=== PATIENT | male | born 1960 | race Caucasian/White ===

== ENCOUNTER 2024-05-15 15:46 | Emergency (ER) | payer OTHER ==
[~2024-05-15] VITALS: Ht 175.3 cm; Wt 59.0 kg
[~2024-05-15 15:46] MED LIST: MULTI-VITAMIN1 EACH PO
[2024-05-15 15:55] VITALS: TEMP 98.3
[2024-05-15 16:40] LABS: BASOPHILS % 0.2 % (0.0-1.0); EOSINOPHILS # (AUTO) 0.2 (0.0-0.4); HEMATOCRIT 36.4 % (38.2-49.6); HEMOGLOBIN 12.2 g/dL (14.0-18.0); LYMPHOCYTES % 12.2 % (18.0-39.1); MEAN CORPUSCULAR HGB CONC 33.5 g/dL (31-35); MEAN CORPUSCULAR VOLUME 89.7 fL (81-99); MONOCYTES % 12.1 % (4.4-11.3); NEUTROPHILS # (AUTO) 6.2 (2.1-6.9); NEUTROPHILS % 73.1 % (38.7-80.0); PLATELET COUNT 305 x10e3/uL (140-360); RED BLOOD COUNT 4.06 x10e6/uL (4.3-5.7); RED CELL DISTRIBUTION WIDTH 13.6 % (11.7-14.4); WHITE BLOOD COUNT 8.53 x10e3/uL (4.8-10.8)
[2024-05-15 16:55] LABS: INR 0.95; PROTHROMBIN TIME 13.3 seconds (11.9-14.5)
[2024-05-15 16:56] LABS: PARTIAL THROMBOPLASTIN TIME 36.8 seconds (23.8-35.5)
[2024-05-15 17:04] LABS: ALBUMIN 3.5 g/dL (3.5-5.0); ALBUMIN/GLOBULIN RATIO 1.1 (0.8-2.0); ANION GAP 13.3 mmol/L (8-16); BILIRUBIN,TOTAL 0.2 mg/dL (0.2-1.2); CALCIUM 9.2 mg/dL (8.4-10.2); CREATININE, SERUM 0.73 mg/dL (0.72-1.25); POTASSIUM 4.3 mmol/L (3.5-5.1); TOTAL PROTEIN 6.6 g/dL (6.5-8.1)
[2024-05-15] MEDS: KETOROLAC TROMETHAMINE 30 MG/ML VIAL IV STA (17:05)
[2024-05-15] MEDS: SODIUM CHLORIDE 0.9% 1000ML 1,000 ML IV STA (17:06)
[2024-05-15] MEDS ORDERED: IOPAMIDOL 370 MG/ML 100 ML INFUS..BTL INJ ONE (17:31)
[2024-05-15 18:29] LABS: CORONAVIRUS COVID-19 AG NEGATIVE (NEGATIVE); INFLUENZA A AG NEGATIVE (NEGATIVE); INFLUENZA B AG NEGATIVE (NEGATIVE); STREPTOCOCCUS GRP A ANTIGEN NEGATIVE (NEGATIVE)
[2024-05-15 20:00] VITALS: PULSE 68; RESP 14
[2024-05-15 20:50] VITALS: BP 126/67; O2SAT 97
== END 2024-05-15 20:44 | disposition home or self-care (01) ==
LOC: ER 16:28
DX: R13.10 Dysphagia, unspecified (principal); C14.0 Malignant neoplasm of pharynx, unspecified; Z11.52 Encounter for screening for COVID-19
CPT/HCPCS: 36415; 70491; 80053; 83518; 85025; 85610; 85730; 87070; 87428; 99284; J1885; J2470; J7030; Q9967